=== PATIENT | female | born 1995 | race Caucasian/White ===

== ENCOUNTER 2021-10-11 11:05 | Emergency (ER) | payer BC ==
[2021-10-11 11:09] VITALS: BP 148/94
== END 2021-10-11 11:54 | disposition home or self-care (01) ==
LOC: ED 11:05
DX: M79.671 Pain in right foot (principal); W20.8XXA Other cause of strike by thrown, projected or falling object, initial encounter; Y92.59 Other trade areas as the place of occurrence of the external cause; Y99.0 Civilian activity done for income or pay